=== PATIENT | female | born 1945 | race Caucasian/White ===

== ENCOUNTER 2021-10-09 23:30 | Inpatient (IN) | payer MEDICARE ==
--- NOTE | 2021-10-09 23:31 | ED ---
Recheck HPI - General Stated Complaint: Small bowel obstruction Time Seen by Provider: 10/09/21 23:31 - Related Data Allergies Allergy/AdvReac Type Severity Reaction Status Date / Time No Known Allergies Allergy Verified 10/09/21 23:39 Review of Systems ROS Statement: Those systems with pertinent positive or pertinent negative responses have been documented in the HPI. ROS Other: All systems not noted in ROS Statement are negative. Course Vital Signs 10/09/21 23:33 Temperature 97.6 F Pulse Rate 89 Respiratory 18 Rate Blood Pressure 112/77 O2 Sat by Pulse 98 Oximetry Disposition Clinical Impression: Small bowel obstruction, Abdominal pain, Nausea & vomiting, Hemodialysis patient Disposition: ADMITTED IP TO THIS HOSP Condition: Fair Is patient prescribed a controlled substance at d/c from ED?: No Referrals: None,Stated [Primary Care Provider] - 1-2 days
[2021-10-09] MEDS ORDERED: DEXTROSE 5%-0.45% NACL 1,000 ML IV SCH (23:45)
[2021-10-09] MEDS ORDERED: NALOXONE 0.4 MG/ML 1 ML VIAL IV PRN (23:50)
[2021-10-09] MEDS ORDERED: MORPHINE SULFATE 4 MG/ML SYRINGE IV PRN (23:50)
[2021-10-09] MEDS ORDERED: ONDANSETRON 4 MG/2 ML VIAL IVP PRN (23:50)
--- NOTE | 2021-10-10 06:49 | P.HPIM ---
History of Present Illness H&P Date: 10/10/21 The patient is a 76-year-old female with a PMH of CAD status post CABG, ESRD on peritoneal dialysis, gout, hypertension, diverticulosis, and anxiety who presented to [facility] with complaints of diffuse abdominal discomfort ongoing for the past 3 weeks. The patient reports that her abdominal discomfort has been occurring intermittently over the past few weeks. She is a somewhat poor historian but states that she has not been experiencing nausea, vomiting, or diarrhea at home. ED documentation from [facility] however states that the patient did endorse severe nausea with eating as well as multiple episodes of dry heaving at home. The patient was seen at [facility] [place] yesterday and was prescribed Zofran and Prilosec and subsequently again the following day when she was started on Ventolin Carafate which only provided temporary relief. The patient denied any prior history of chest symptoms. She denied experiencing chest discomfort, shortness of breath, fever, chills, cough. Denies any changes of the peritoneal dialysis catheter site. She underwent an extensive evaluation at [facility] Reviewed Showing a Lactic Acid of 0.9, WBC Count 10.5, Hemoglobin 11.7, Glucose 94, BUN 85, Creatinine 10.8, Sodium 121 POTASSIUM 4.9, CHLORIDE 86, CO2 25, AST 11, ALT 8, ALKALINE PHOSPHATASE 101, TOTAL BILIRUBIN 0.3, LIPASE 156, TROPONIN I 0.02, COVID NEGA TIVE, UA negative for UTI, with a CT chest, abdomen, and pelvis without contrast showing small bowel obstruction suspected partial in the mid to distal jejunum with a peritoneal dialysis catheter with free fluid in the abdomen suspected secondary to the catheter. Colonic diverticulosis without diverticulitis was also noted. EKG reveals sinus rhythm with APCs at [address]/T-wave changes noted as reviewed by me. The patient reported at time of the interview that her pain had resolved and that she felt significantly better. Review of systems: Pertinent positives and negatives as discussed in HPI, a complete review of systems was performed and all other systems are negative. Physical examination: General: non toxic, no distress, appears at stated age, normal weight Derm: no unusual rashes/lesions, warm Head: atraumatic, normocephalic, symmetric Eyes: EOMI, no lid lag, anicteric sclera, pupils equal round reactive to light ENT: Nose and ears atraumatic Neck: No cervical lymphadenopathy, trachea midline, supple Mouth: no lip lesion, mucus membranes moist Cardiovascular: S1S2 reg, no murmur, positive dorsalis pedis pulse bilateral, no edema Lungs: CTA bilateral, no rhonchi, no rales, no accessory muscle use Abdominal: soft, nontender to palpation, no guarding, peritoneal dialysis catheter in place without surrounding skin abnormalities Ext: muscle strength 5 out of 5 in all 4 extremities grossly, no gross muscle atrophy, no contractures, Neuro: CN II-XI grossly intact, no gross focal neuro deficits Psych: Alert, oriented, appropriate affect Assessment/plan Abdominal pain, suspected secondary to partial small bowel obstruction -Nothing by mouth for now -Insert NG tube for intermittent suction -Antiemetics, pain control -Protonix IV -General surgery consulted ESRD on peritoneal hemodialysis -Nephrology consulted Severe hyponatremia -No baseline available for comparison -Monitor for now DVT prophylaxis -Heparin subcu The patient is admitted with an anticipated greater than 2 midnight stay for evaluation of partial SBO CODE STATUS: Full Code Discussed with: Patient Anticipated discharge date: 10/[address]: Home Past Medical History Past Medical History: Coronary Artery Disease (CAD), Hypertension Additional Past Medical History / Comment(s): AV 1st degree block, ESRD (does peritoneal dialysis at home), Dyslipidemia, Acute gout, Nausea, Vertigo, Diverticulitis of sigmoid, Renal dialysis, hyponatremia, UTI History of Any Multi-Drug Resistant Organisms: None Reported Additional Past Surgical History / Comment(s): "Bypass 25 years ago", Fistula in left upper arm. Past Anesthesia/Blood Transfusion Reactions: No Reported Reaction Past Psychological History: Anxiety Smoking Status: Former smoker Past Alcohol Use History: None Reported Past Drug Use History: None Reported - Past Family History Father Family Medical History: Hyperlipidemia Medications and Allergies Home Medications Medication Instructions Recorded Confirmed Type Dicyclomine [Bentyl] 20 mg PO Q12HR 10/10/21 10/10/21 History Omeprazole 40 mg PO DAILY 10/10/21 10/10/21 History Ondansetron [Zofran] 4 mg PO Q8HR PRN 10/10/21 10/10/21 History Sucralfate [Carafate] 1 gram PO AC-TID 10/10/21 10/10/21 History Allergies Allergy/AdvReac Type Severity Reaction Status Date / Time No Known Allergies Allergy Verified 10/09/21 23:39 Physical Exam Vitals: Vital Signs Temp Pulse Pulse Resp BP BP Pulse Ox 10/10/21 01:30 18 10/10/21 00:44 97.7 F 86 14 110/55 98 10/09/21 23:33 97.6 F 89 18 112/77 98 Intake and Output 10/09/21 10/09/21 10/10/21 14:59 22:59 06:59 Intake Total 160 Balance 160 Intake: Intake, IV Titration 160 Amount Dextrose 5%-0.45% NaCl 1, 160 000 ml @ 20 mls/hr IV . Q24H [facility] Rx#:[id number] Other: Voiding Method Toilet # Voids 0 # Bowel Movements 0 Weight 58.967 kg Results CBC & Chem 7: 10/10/21 06:20 10/10/21 06:20 Thrombosis Risk Factor Assmnt - Choose All That Apply Each Risk Factor Represents 3 Points: Age 75 years or older Thrombosis Risk Factor Assessment Total Risk Factor Score: 3 Thrombosis Risk Factor Assessment Level: Moderate Risk
[2021-10-10 06:50] LABS: Basophils # (A) 0.1 k/uL (0-0.2); Basophils % (A) 1 %; Eosinophils # (A) 0.1 k/uL (0-0.7); Eosinophils % (A) 1 %; HCT 35.9 % (34.0-46.0); HGB 11.4 gm/dL (11.4-16.0); Lymphocytes # (A) 1.1 k/uL (1.0-4.8); Lymphocytes % (A) 11 %; MCH 29.5 pg (25.0-35.0); MCHC 31.7 g/dL (31.0-37.0); MCV 93.3 fL (80.0-100.0); Mean Platelet Volume 7.4; Monocytes # (A) 0.9 k/uL (0-1.0); Monocytes % (A) 10 %; Neutrophils # (A) 7.3 k/uL (1.3-7.7); Neutrophils % (A) 76 %; Platelet Count 366 k/uL (150-450); RBC 3.85 m/uL (3.80-5.40); RDW 13.8 % (11.5-15.5); WBC 9.6 k/uL (3.8-10.6)
[2021-10-10 07:01] LABS: Albumin 2.7 g/dL (3.5-5.0); Calcium 6.7 mg/dL (8.4-10.2); Magnesium 1.2 mg/dL (1.6-2.3); Phosphorus 7.5 mg/dL (2.5-4.5); Potassium 5.4 mmol/L (3.5-5.1); Total Bilirubin 0.3 mg/dL (0.2-1.3); Total Protein 6.1 g/dL (6.3-8.2)
[2021-10-10] MEDS: PANTOPRAZOLE 40 MG/10 ML VIAL IV SCH (07:38)
[2021-10-10] MEDS: HEPARIN SODIUM,PORCINE/PF 5,000 UNIT/0.5 ML SYRINGE SQ SCH ×3 (07:38→23:18)
[2021-10-10] MEDS ORDERED: DIALYSIS (PERIT 2.5%) 2,000 ML 50 G/2,000 ML BAG INTRAPERIT SCH (13:30)
--- NOTE | 2021-10-10 13:33 | P.NPCON ---
History of Present Illness - Reason for Consult Consult date: 10/10/21 end stage renal disease - Chief Complaint Abdominal pain - History of Present Illness 76-year-old white lady coming to the hospital with abdominal pain. She is on peritoneal dialysis for the last 2 years. Prior to that she was on hemodialysis for the last 2 years. She is on icodextrin 2 L daily as her dialysate. As per her she was recently admitted 2 weeks ago to [facility], with abdominal pain and she was treated with intraperitoneal antibiotics. Denies nausea vomiting diarrhea. No chest pain shortness of breath. She admits, she was on cyclosporine before but stopped using it because it was not working well. And she doesn't want to use multiple fluids in the day. Her mat inspector is Dr. Carrillo. 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 Past Anesthesia/Blood Transfusion Reactions: No Reported Reaction Past Psychological History: Anxiety Smoking Status: Former smoker Past Alcohol Use History: None Reported Past Drug Use History: None Reported - Past Family History Father Family Medical History: Hyperlipidemia Medications and Allergies Home Medications Medication Instructions Recorded Confirmed Type Calcium Acetate [Phoslo] 2,001 mg PO TID 10/10/21 10/10/21 History Ergocalciferol (Vitamin D2) 1,250 mcg PO QMONTHLY 10/10/21 10/10/21 History [Drisdol (50,000 Iu)] LORazepam [Ativan] 0.5 mg PO BID 10/10/21 10/10/21 History Lovastatin [Altoprev] 60 mg PO HS 10/10/21 10/10/21 History Metoprolol Tartrate [Lopressor] 100 mg PO BID 10/10/21 10/10/21 History Omeprazole 40 mg PO DAILY 10/10/21 10/10/21 History Ondansetron [Zofran] 4 mg PO Q8HR PRN 10/10/21 10/10/21 History Sucralfate [Carafate] 1 gram PO AC-TID 10/10/21 10/10/21 History cloNIDine HCL [Catapres] 0.3 mg PO DAILY 10/10/21 10/10/21 History Allergies Allergy/AdvReac Type Severity Reaction Status Date / Time No Known Allergies Allergy Verified 10/10/21 12:18 Physical Exam Vitals: Vital Signs Temp Pulse Pulse Resp BP BP Pulse Ox 10/10/21 08:00 98.5 F 91 17 111/71 98 10/10/21 01:30 18 10/10/21 00:44 97.7 F 86 14 110/55 98 10/09/21 23:33 97.6 F 89 18 112/77 98 Intake and Output 10/09/21 10/10/21 10/10/21 22:59 06:59 14:59 Intake Total 160 Balance 160 Intake: Intake, IV Titration 160 Amount Dextrose 5%-0.45% NaCl 1, 160 000 ml @ 20 mls/hr IV . Q24H [facility] Rx#:[id number] Other: Voiding Method Toilet # Voids 0 # Bowel Movements 0 Weight 58.967 kg No Acute distress S1 S2 heard Lungs clear No Edema Results - Lab Results Most recent lab results Calcium 6.7 mg/dL (8.4-10.2) L 10/10/21 06:20 Phosphorus 7.5 mg/dL (2.5-4.5) H 10/10/21 06:20 Magnesium 1.2 mg/dL (1.6-2.3) L 10/10/21 06:20 10/10/21 06:20 10/10/21 06:20 Assessment and Plan Assessment: #1 abdominal pain, rule out constipation/peritonitis. #2 ESRD on peritoneal dialysis for the last 2 years. #3 hyponatremia suspect excessive free water intake #4 low normal blood pressures #5 anemia with chronic kidney disease Plan: #1 start CAPD, 2 L every 6 hours, 2.5% dialysate. #2 check peritonial fluid for cell count and cultures. #3 check abdominal x-ray for catheter position and rule out constipation #4 ESRD medications
--- NOTE | 2021-10-10 13:50 | P.GSCN ---
History of Present Illness Consult date: 10/10/21 Reason for Consult: Abdominal pain, nausea, question of small bowel obstruction, end-stage renal disease on peritoneal dialysis History of present illness: Patient is a 76-year-old lady transferred to [facility] a reported 3 week history of diffuse abdominal pains with waxing and waning nausea. Computed tomography scan an outlying facility reportedly showed evidence of partial obstruction of the mid to distal jejunum. A peritoneal dialysis catheter is in place. She reports no history of abdominal surgery in tells me that she is feeling a lot better today than yesterday. Specifically she is feeling quite hungry and thirsty. 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 She denies fever or chills, tells me she hasn't had similar problems in the past. No reported history of inflammatory bowel disease. She isn't maintained on Bentyl at home, not on any manner of oral anticoagulants according to the medical record. CBC on presentation was normal and all counts, no evidence of leukocytosis, no o bvious signs of iron deficiency anemia, platelet count was 366. Conference of metabolic panel however shows a significant hyponatremia with sodium 125, potassium bit elevated at 5.2, CO2 of 21, creatinine 10.89 and a erosive 91. 7.5, magnesium low at 1.2. Total bilirubin was 0.3. AST was 16, a LT 11, alkaline phosphatase 85, albumin 2.1. She's been afebrile overnight, essentially hemodynamically stable with perhaps a mild tachycardia at 91, blood pressure is a bit low, mean arterial pressures 85, she is saturating well at 98% on room air. Nasogastric tube placement was initially ordered with as the patient was doing well overnight that was deferred for now. She tells me her last bowel movement was yesterday, somewhat loose. No bowel movement today but she admits to flatus. 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 Past Anesthesia/Blood Transfusion Reactions: No Reported Reaction Past Psychological History: Anxiety Smoking Status: Former smoker Past Alcohol Use History: None Reported Past Drug Use History: None Reported - Past Family History Father Family Medical History: Hyperlipidemia Medications and Allergies Home Medications Medication Instructions Recorded Confirmed Type Calcium Acetate [Phoslo] 2,001 mg PO TID 10/10/21 10/10/21 History Ergocalciferol (Vitamin D2) 1,250 mcg PO QMONTHLY 10/10/21 10/10/21 History [Drisdol (50,000 Iu)] LORazepam [Ativan] 0.5 mg PO BID 10/10/21 10/10/21 History Lovastatin [Altoprev] 60 mg PO HS 10/10/21 10/10/21 History Metoprolol Tartrate [Lopressor] 100 mg PO BID 10/10/21 10/10/21 History Omeprazole 40 mg PO DAILY 10/10/21 10/10/21 History Ondansetron [Zofran] 4 mg PO Q8HR PRN 10/10/21 10/10/21 History Sucralfate [Carafate] 1 gram PO AC-TID 10/10/21 10/10/21 History cloNIDine HCL [Catapres] 0.3 mg PO DAILY 10/10/21 10/10/21 History Allergies Allergy/AdvReac Type Severity Reaction Status Date / Time No Known Allergies Allergy Verified 10/10/21 12:18 Surgical - Exam Osteopathic Statement: *. No significant issues noted on an osteopathic structural exam other than those noted in the History and Physical/Consult. Vital Signs Temp Pulse Resp BP Pulse Ox 97.6 F 89 18 112/77 98 10/09/21 23:33 10/09/21 23:33 10/09/21 23:33 10/09/21 23:33 10/09/21 23:33 - General no distress, cachectic - Eyes PERRL, normal ocular movement - ENT normal pinna, normal nares - Neck trachea midline - Respiratory normal respiratory effort, clear to auscultation - Cardiovascular Rhythm: regular - Abdomen Abdomen is soft, nontender to palpation, there is mild to moderate distention with tympany. No guarding or rebound. Peritoneal dialysis catheter is in place. No clinical signs of jaundice. Abdomen: soft - Integumentary no rash - Neurologic normal coordination, normal sensation - Psychiatric oriented to time, oriented to person, oriented to place, speech is normal, memory intact Results - Labs 10/10/21 06:20 10/10/21 06:20 Abnormal Lab Results - Last 24 Hours (Table) 10/10/21 Range/Units 06:20 Sodium 125 L (137-145) mmol/L Potassium 5.4 H (3.5-5.1) mmol/L Chloride 91 L (98-107) mmol/L Carbon Dioxide 21 L (22-30) mmol/L BUN 94 H (7-17) mg/dL Creatinine 10.89 H* (0.52-1.04) mg/dL Calcium 6.7 L (8.4-10.2) mg/dL Phosphorus 7.5 H (2.5-4.5) mg/dL Magnesium 1.2 L (1.6-2.3) mg/dL Total Protein 6.1 L (6.3-8.2) g/dL Albumin 2.7 L (3.5-5.0) g/dL Diabetes panel 10/10/21 Range/Units 06:20 Sodium 125 L (137-145) mmol/L Potassium 5.4 H (3.5-5.1) mmol/L Chloride 91 L (98-107) mmol/L Carbon Dioxide 21 L (22-30) mmol/L BUN 94 H (7-17) mg/dL Creatinine 10.89 H* (0.52-1.04) mg/dL Glucose 91 (74-99) mg/dL Calcium 6.7 L (8.4-10.2) mg/dL AST 16 (14-36) U/L ALT 11 (4-34) U/L Alkaline Phosphatase 85 (38-126) U/L Total Protein 6.1 L (6.3-8.2) g/dL Albumin 2.7 L (3.5-5.0) g/dL Calcium panel 10/10/21 Range/Units 06:20 Calcium 6.7 L (8.4-10.2) mg/dL Phosphorus 7.5 H (2.5-4.5) mg/dL Albumin 2.7 L (3.5-5.0) g/dL Pituitary panel 10/10/21 Range/Units 06:20 Sodium 125 L (137-145) mmol/L Potassium 5.4 H (3.5-5.1) mmol/L Chloride 91 L (98-107) mmol/L Carbon Dioxide 21 L (22-30) mmol/L BUN 94 H (7-17) mg/dL Creatinine 10.89 H* (0.52-1.04) mg/dL Glucose 91 (74-99) mg/dL Calcium 6.7 L (8.4-10.2) mg/dL Adrenal panel 10/10/21 Range/Units 06:20 Sodium 125 L (137-145) mmol/L Potassium 5.4 H (3.5-5.1) mmol/L Chloride 91 L (98-107) mmol/L Carbon Dioxide 21 L (22-30) mmol/L BUN 94 H (7-17) mg/dL Creatinine 10.89 H* (0.52-1.04) mg/dL Glucose 91 (74-99) mg/dL Calcium 6.7 L (8.4-10.2) mg/dL Total Bilirubin 0.3 (0.2-1.3) mg/dL AST 16 (14-36) U/L ALT 11 (4-34) U/L Alkaline Phosphatase 85 (38-126) U/L Total Protein 6.1 L (6.3-8.2) g/dL Albumin 2.7 L (3.5-5.0) g/dL Assessment and Plan Assessment: 76-year-old lady with question of partial small bowel obstruction versus ileus in the setting of hyponatremia, hyperkalemia and electrolyte abnormalities in the setting of end-stage renal disease with what would appear to be a few missed peritoneal dialysis treatments. No evidence of peritonitis on exam, no hard signs for sepsis. Plan: Options for treatment were discussed with the patient. She is unenthusiastic about nasogastric tube placement and she tells me that for now she is feeling fine and that is actually hungry and wants to eat. I advised her that I probably wouldn't start her on a diet just yet until we do a bit more homework to rule out persistence of obstruction. I think to start we could get some abdominal films with antecedent oral contrast administration. We'll follow up with off upright and flat plate abdomen x-ray tomorrow. If it shows passage of contrast into the colon she can be advanced to full liquids. If it shows persistence of obstruction and she didn't need nasogastric tube placement and an initial trial of nonoperative management. First order of business is can address her dialysis needs and electrolyte issues. Will follow. No plans for surgery at present, I expect her to do well with nonoperative management. Time with Patient: Greater than 30
[2021-10-10] MEDS ORDERED: IOPAMIDOL CONTRAST (ORAL USE) VIAL PO PRN (13:59)
[2021-10-10] MEDS: DIALYSIS (PERIT 2.5%) 2,000 ML 50 G/2,000 ML BAG INTRAPERIT SCH ×2 (14:29→20:42)
--- NOTE | 2021-10-10 15:27 | P.PN ---
Subjective Progress Note Date: 10/10/21 Hospital course: The patient is a very pleasant 76-year-old female with a past medical history of CAD status post CABG x4, ESRD on daily peritoneal dialysis with last reported dialysis session being Monday10/08/28, hypertension, hyperlipidemia, and diverticulosis. She presented to the emergency department at [facility] with a chief complaint of diffuse abdominal pain and discomfort. Patient reported that this pain initially began approximately 3 weeks ago and has progressively worsened and was now accompanied by nausea and vomiting. At [facility] patient underwent full evaluation at that facility and was reported to have a lactic acid of 0.9, WBC count of 10.5, hemoglobin 11.7, glucose 94, BUN 85, creatinine 10.8, sodium 121, potassium 4.9, chloride 86, bicarb 25, AST 11, ALT 8, alkaline phosphatase of 101, total bilirubin of 0.3, lipase 156, and troponin 0.02. Urinalysis was reportedly negative for UTI. EKG reported sinus rhythm with occasional PACs. However CT chest, abdomen, and pelvis without contrast revealed small bowel obstruction suspected partial in mid to distal jejunum, dialysis catheter in place with free fluid in the abdomen suspected to be secondary to dialysis catheter, and colonic diverticulosis without acute diverticulitis. Patient was then transferred to our facility for admission to the hospital and consultation to general surgery for concerns of small bowel obstruction and nephrology for continued dialysis. Physical examination: Patient seen and fully evaluated at bedside this morning. Patient reports persi stent nausea this morning but denies any further episodes of vomiting and reports slight improvement in previously reported abdominal pain. Patient is unsure but states that she believes she has been passing flatus, but denies any bowel movements at this time. Patient reports her last bowel movement was yesterday and was a very small soft/liquidy stool. She denies having any hematemesis, melena, or hematochezia. Awaiting surgery evaluation and further recommendations. Hyponatremia slowly improving, Morning labs reveal sodium 125. Hyperkalemia present with potassium of 5.4 secondary to ESRD with BUN 94, creatinine 10.89, and GFR of 3. Patient missed dialysis session and preparing to undergo peritoneal dialysis at this time. Calcium 6.7 with corrected calcium of 7.7. Order placed for 1 g calcium gluconate. Magnesium 1.2, order placed for magnesium sulfate 4 g. General: non toxic, no distress, appears at stated age Derm: warm, dry Head: atraumatic, normocephalic, symmetric Eyes: EOMI, no lid lag, anicteric sclera Mouth: no lip lesion, mucus membranes moist Cardiovascular: S1S2 reg, systolic murmur, positive posterior tibial pulses bilaterally, AV fistula left upper extremity with bruit and thrill present. Lungs: CTA bilateral, no rhonchi, no rales , no accessory muscle use Abdominal: soft, diffuse abdominal tenderness to palpation, no guarding, no appreciable organomegaly. Peritoneal dialysis catheter in place. Ext: no gross muscle atrophy, no edema, no contractures Neuro: CN II-XI grossly intact, no focal neuro deficits Psych: Alert, oriented, appropriate affect Assessment/plan Abdominal pain, suspected secondary to partial small bowel obstruction vs ileus -Nothing by mouth for now, advance diet as recommended by general surgery team -If pt continues to have nausea or any further episodes of vomiting we will need to Insert NG tube to Low intermittent suction for bowel decompression. -Antiemetics and pain control -Protonix IV -General surgery consulted -Gentle IV fluid hydration with 0.9% normal saline at 50 mL's per hour only while patient is nothing by mouth status, may discontinue once diet is advanced. ESRD on peritoneal hemodialysis Hyperkalemia secondary to above -Nephrology consulted -Patient reports missing yesterday's dialysis session and is currently due for dialysis. Patient has supplies and preparing to undergo peritoneal dialysis at this time. -Hyperkalemia should correct once patient is completed with dialysis. Severe hyponatremia -No baseline available for comparison, likely chronic -Nephrology following -Monitor for now Hypocalcemia -Calcium 6.7 with corrected calcium of 7.7. Patient to receive 1 g calcium gluconate and we will continue to monitor with repeat a.m. labs. Hypomagnesemia -Magnesium 1.2, replaced. -We will continue to monitor with repeat a.m. labs and correct abnormal electrolyte values as needed. History of CAD status post quadruple bypass Hypertension Hyperlipidemia -Patient to continue daily cardiac medication regimen with metoprolol, lovastatin, and clonidine. CODE STATUS: Full Code DVT Prophylaxis: Heparin Discussed with: Patient and RN Anticipated discharge date: Clinical course to determine Anticipated discharge place: Home A total of 38 minutes was spent on the care of this complex patient more than 50% of the time was spent in counseling and care coordination I reviewed the documentation as provided by the RODGER above, who is the original author of this note. I agree with the documented assessment and plan, with the following changes: none Objective - Vital Signs Vital signs: Vital Signs Temp 97.7 F 10/10/21 00:44 Pulse 86 10/10/21 00:44 Resp 18 10/10/21 01:30 BP 110/55 10/10/21 00:44 Pulse Ox 98 10/10/21 00:44 FiO2 Intake & Output 10/09/21 10/10/21 10/10/21 18:59 06:59 18:59 Intake Total 160 Balance 160 Weight 58.967 kg Intake: Intake, IV Titration 160 Amount Dextrose 5%-0.45% NaCl 1, 160 000 ml @ 20 mls/hr IV . Q24H [facility] Rx#:[id number] Other: Voiding Method Toilet # Voids 0 # Bowel Movements 0 - Labs CBC & Chem 7: 10/10/21 06:20 10/10/21 06:20 Labs: Abnormal Lab Results - Last 24 Hours (Table) 10/10/21 Range/Units 06:20 Sodium 125 L (137-145) mmol/L Potassium 5.4 H (3.5-5.1) mmol/L Chloride 91 L (98-107) mmol/L Carbon Dioxide 21 L (22-30) mmol/L BUN 94 H (7-17) mg/dL Creatinine 10.89 H* (0.52-1.04) mg/dL Calcium 6.7 L (8.4-10.2) mg/dL Phosphorus 7.5 H (2.5-4.5) mg/dL Magnesium 1.2 L (1.6-2.3) mg/dL Total Protein 6.1 L (6.3-8.2) g/dL Albumin 2.7 L (3.5-5.0) g/dL
[2021-10-10] MEDS ORDERED: SODIUM CHLORIDE 0.9% 1,000 ML IV SCH (15:30)
[2021-10-10] MEDS: MAGNESIUM SULFATE-D5W PMX 1 GM in DEXTROSE/WATER 1 100ML.BAG IVPB SCH ×4 (15:45→23:19)
[2021-10-10] MEDS ORDERED: CALCIUM GLUCONATE IN NACL 1 GM in SALINE 1 100ML.BAG IVPB ONE (16:00)
[2021-10-10] MEDS ORDERED: CALCIUM ACETATE 667 MG TAB PO SCH (16:00)
[2021-10-10] MEDS: SUCRALFATE 1 GM TAB PO SCH (16:51)
[2021-10-10] MEDS: SEVELAMER 800 MG TAB PO SCH (16:52)
--- NOTE | 2021-10-10 19:31 | XR ---
EXAMINATION TYPE: XR abdomen acute w cxr DATE OF EXAM: 10/10/2021 COMPARISON: NONE HISTORY: Pain TECHNIQUE: 3 views FINDINGS: There is some mild linear density left lung base. Heart size is normal. No heart failure. N o pleural effusion. Bowel gas pattern is fairly normal. No sign of intestinal obstruction or pneumope ritoneum. There is tubing over the abdomen. No evidence of abdominal mass. IMPRESSION: Nonacute abdomen. Mild subsegmental atelectasis at the left lung base. Normal heart.
[2021-10-10] MEDS: ATORVASTATIN 20 MG TAB PO SCH (20:23)
[2021-10-10] MEDS: LORazepam 0.5 MG TAB PO SCH (20:23)
[2021-10-10] MEDS: METOPROLOL TARTRATE 50 MG TAB PO SCH (20:44)
[2021-10-11] MEDS: DIALYSIS (PERIT 2.5%) 2,000 ML 50 G/2,000 ML BAG INTRAPERIT SCH ×4 (02:30→23:30)
[2021-10-11] MEDS ORDERED: cloNIDine HCL 0.1 MG TAB PO SCH (09:00)
--- NOTE | 2021-10-11 09:11 | P.PN ---
Subjective Progress Note Date: 10/11/21 Hospital course: The patient is a very pleasant 76-year-old female with a past medical history of CAD status post CABG x4, ESRD on daily peritoneal dialysis with last reported dialysis session being Monday10/08/28, hypertension, hyperlipidemia, and diverticulosis. She presented to the emergency department at [facility] with a chief complaint of diffuse abdominal pain and discomfort. Patient reported that this pain initially began approximately 3 weeks ago and has progressively worsened and was now accompanied by nausea and vomiting. At [facility] patient underwent full evaluation at that facility and was reported to have a lactic acid of 0.9, WBC count of 10.5, hemoglobin 11.7, glucose 94, BUN 85, creatinine 10.8, sodium 121, potassium 4.9, chloride 86, bicarb 25, AST 11, ALT 8, alkaline phosphatase of 101, total bilirubin of 0.3, lipase 156, and troponin 0.02. Urinalysis was reportedly negative for UTI. EKG reported sinus rhythm with occasional PACs. However CT chest, abdomen, and pelvis without contrast revealed small bowel obstruction suspected partial in mid to distal jejunum, dialysis catheter in place with free fluid in the abdomen suspected to be secondary to dialysis catheter, and colonic diverticulosis without acute diverticulitis. Patient was then transferred to our facility for admission to the hospital and consultation to general surgery for concerns of small bowel obstruction and nephrology for continued dialysis.. Peritoneal fluid culture pending. Physical examination: Receive notification from radiology abdominal x-ray revealing pneumoperitoneum. Went to bedside to assess patient, patient reports feeling much better this morning and reports abdominal pain has completely subsided. Patient reports she is passing flatus but has not yet had a bowel movement. Patient denies having any nausea or vomiting. Findings on x-ray likely secondary to peritoneal dialysis catheter, Dr. Huitron was notified by RN of critical x-ray findings and coming to bedside to evaluate patient. Morning labs reviewed, revealing p ersistent hyponatremia with sodium of 125, hypochloremia with chloride of 88, BUN of 78.3, creatinine 9.6, and GFR of 3.6. We are holding off on peritoneal dialysis until patient is assessed by general surgeon and pneumoperitoneum can be completely ruled out. Previously noted hypomagnesemia and hyperkalemia have resolved. General: non toxic, no distress, appears at stated age Derm: warm, dry Head: atraumatic, normocephalic, symmetric Eyes: EOMI, no lid lag, anicteric sclera Mouth: no lip lesion, mucus membranes moist Cardiovascular: S1S2 reg, systolic murmur, positive posterior tibial pulses bilaterally, AV fistula left upper extremity with bruit and thrill present. Lungs: CTA bilateral, no rhonchi, no rales , no accessory muscle use Abdominal: soft, nontender to palpation, no guarding, no appreciable organomegaly. Peritoneal dialysis catheter in place. Ext: no gross muscle atrophy, no edema, no contractures Neuro: CN II-XI grossly intact, no focal neuro deficits Psych: Alert, oriented, appropriate affect Assessment/plan Ileus Abdominal pain -Nothing by mouth for now, advance diet as recommended by general surgery team -Repeat morning x-ray revealing improvement of previously noted obstructive pattern, however also revealing critical findings of pneumoperitoneum. This arash e air likely secondary to peritoneal dialysis catheter however general surgeon called to bedside to assess and rule out pneumoperitoneum. -Antiemetics and pain control -Protonix IV -General surgery following, no plans for surgical intervention at this time. ESRD on peritoneal hemodialysis -Nephrology consulted -Patient to continue daily peritoneal dialysis, morning session is pending evaluation by general surgeon to rule out pneumoperitoneum. Hyperkalemia, resolved Severe hyponatremia -No baseline available for comparison, likely chronic -Nephrology following -Monitor for now Hypocalcemia, resolved -Calcium 7.2 with corrected calcium of 8.4. Hypomagnesemia, resolved History of CAD status post quadruple bypass Hypertension Hyperlipidemia -Patient to continue daily cardiac medication regimen with metoprolol, lovastatin, and clonidine. CODE STATUS: Full Code DVT Prophylaxis: Heparin Discussed with: Patient and RN Anticipated discharge date: Clinical course to determine Anticipated discharge place: Home A total of 35 minutes was spent on the care of this complex patient more than 50% of the time was spent in counseling and care coordination I reviewed the documentation as provided by the RODGER above, who is the original author of this note. I agree with the documented assessment and plan, with the following changes: none Objective - Vital Signs Vital signs: Vital Signs Temp 97.8 F 10/11/21 07:13 Pulse 75 10/11/21 07:13 Resp 16 10/11/21 07:13 BP 132/76 10/11/21 07:13 Pulse Ox 100 10/11/21 07:13 FiO2 Intake & Output 10/10/21 10/11/21 10/11/21 18:59 06:59 18:59 Intake Total 900 Balance 900 Intake: Intake, IV Titration 900 Amount Magnesium Sulfate-D5w Pmx 300 1 gm In Dextrose/Water 1 100ml.bag @ 100 mls/hr IVPB Q1H [facility] Rx#: [id number] Sodium Chloride 0.9% 1, 600 000 ml @ 50 mls/hr IV . Q20H [facility] Rx#:[id number] Other: Voiding Method Toilet # Voids 1 1 # Bowel Movements 0 - Labs CBC & Chem 7: 10/11/21 06:03 10/13/21 06:24
[2021-10-11 09:16] LABS: HCT 35.6 % (37.2-46.3); HGB 11.1 g/dL (12.0-15.0); MCH 28.4 pg (27.0-32.0); MCHC 31.2 g/dL (32.0-37.0); Mean Platelet Volume 9.9 fL (9.5-12.2); NRBC Per 100 WBC 0 /100 WBCS (0.0-0.0); Platelet Count 322 X 10*3/uL (140-440); RBC 3.91 X 10*6/uL (4.10-5.20); RDW 14.7 % (11.5-14.5); WBC 6.29 X 10*3/uL (4.50-10.00)
--- NOTE | 2021-10-11 09:42 | XR ---
Abdomen 2 view HISTORY: Small bowel obstruction 2 views the abdomen on [address] from outside institution dated 10/09/2021, multiple v iew abdomen 10/10/2021 Free air is again noted within the abdomen which may be on the basis of peritoneal dialysis, peritone al dialysis catheter is present. Contrast material hasn't coursed into the colon. There are overlying leads. Lung bases show atelectatic changes. There are dense vascular calcifications noted. Air-fluid levels are present without bowel distention. IMPRESSION: Pneumoperitoneum as described. There is some improvement in bowel distention. Contrast gautam s coursed into the colon suggesting improvement in obstruction or partial obstruction. A [place] level critical message alert has been initiated for Yevgeniy Arriaga MD via the [employer] on 10/11/2021 9:02 AM. This message alert has been sent to Yevgeniy Arriaga MD via th e preferences provided by the clinician for the receipt of Radiology Critical Findings. Message ID [id number].
[2021-10-11 10:12] LABS: Magnesium 2.7 mg/dL (1.5-2.4)
[2021-10-11 10:18] LABS: African American GFR (CKD) 4.1 (60.0-200.0); Albumin 2.5 g/dL (3.8-4.9); Albumin/Globulin Ratio 0.78 (1.60-3.17); Anion Gap 14.2 mmol/L (10.00-18.00); BUN/Creat Ratio 8.16 Ratio (12.00-20.00); Blood Urea Nitrogen 78.3 mg/dL (9.0-27.0); Calcium 7.2 mg/dL (8.7-10.3); Carbon Dioxide 22.8 mmol/L (20.0-27.5); Globulin 3.2 g/dL (1.6-3.3); Non-African American GFR(CKD) 3.6 (60.0-200.0); Potassium 4.7 mmol/L (3.5-5.5); Total Bilirubin 0.2 mg/dL (0.30-1.20); Total Protein 5.7 g/dL (6.2-8.2)
--- NOTE | 2021-10-11 10:37 | P.PN ---
Subjective Patient is seen in follow-up for end-stage renal disease. She is maintained on peritoneal dialysis. Denies abdominal pain. No vomiting or diarrhea. Vital signs are stable. General: Awake. No acute distress. HEENT: Head exam is unremarkable. LUNGS: Breath sounds decreased. HEART: Rate and Rhythm are regular. ABDOMEN: Soft, nontender. EXTREMITITES: No edema. Objective - Vital Signs Vital signs: Vital Signs Temp 97.8 F 10/11/21 07:13 Pulse 75 10/11/21 07:13 Resp 16 10/11/21 07:13 BP 132/76 10/11/21 07:13 Pulse Ox 100 10/11/21 07:13 FiO2 Intake & Output 10/10/21 10/11/21 10/11/21 18:59 06:59 18:59 Intake Total 900 Balance 900 Intake: Intake, IV Titration 900 Amount Magnesium Sulfate-D5w Pmx 300 1 gm In Dextrose/Water 1 100ml.bag @ 100 mls/hr IVPB Q1H [facility] Rx#: [id number] Sodium Chloride 0.9% 1, 600 000 ml @ 50 mls/hr IV . Q20H [facility] Rx#:[id number] Other: Voiding Method Toilet # Voids 1 1 # Bowel Movements 0 - Labs CBC & Chem 7: 10/11/21 06:03 10/11/21 06:03 Labs: Abnormal Lab Results - Last 24 Hours (Table) 10/11/21 10/11/21 Range/Units 06:03 06:03 RBC 3.91 L (4.10-5.20) X 10*6/uL Hgb 11.1 L (12.0-15.0) g/dL Hct 35.6 L (37.2-46.3) % MCHC 31.2 L (32.0-37.0) g/dL RDW 14.7 H (11.5-14.5) % Sodium 125 L (135-145) mmol/L Chloride 88 L (96-109) mmol/L BUN 78.3 H (9.0-27.0) mg/dL Creatinine 9.6 H* (0.6-1.5) mg/dL Est GFR (CKD-EPI)AfAm 4.1 L (60.0-200.0) Est GFR (CKD-EPI)NonAf 3.6 L (60.0-200.0) BUN/Creatinine Ratio 8.16 L (12.00-20.00) Ratio Glucose 116 H (70-110) mg/dL Calcium 7.2 L (8.7-10.3) mg/dL Magnesium 2.7 H (1.5-2.4) mg/dL Total Bilirubin 0.20 L (0.30-1.20) mg/dL Total Protein 5.7 L (6.2-8.2) g/dL Albumin 2.5 L (3.8-4.9) g/dL Albumin/Globulin Ratio 0.78 L (1.60-3.17) g/dL Assessment and Plan Plan: Assessment: 1. End-stage renal disease maintained on peritoneal dialysis. 2. Partial small bowel obstruction. Surgery following. 3. Hyponatremia secondary to chronic kidney disease. 4. Hypertension with chronic kidney disease. Stable. 5. Chronic kidney disease mineral bone disease maintained on Renvela. 6. Hypomagnesemia from poor intake. Replaced. Resolved. 7. Pneumoperitoneum noted on abdominal x-ray. This is likely due to the PD cat heter. Surgery notified. Plan: Resume PD exchanges once seen by surgery. Follow-up dialysate cell count and culture. 1200 mL fluid restriction. Hep-Lock IV fluids. Diet to be advanced by surgery. Patient is hungry and wants to eat.
[2021-10-11] MEDS: PANTOPRAZOLE 40 MG/10 ML VIAL IV SCH (12:02)
[2021-10-11] MEDS: HEPARIN SODIUM,PORCINE/PF 5,000 UNIT/0.5 ML SYRINGE SQ SCH ×2 (12:02→17:10)
[2021-10-11] MEDS: LORazepam 0.5 MG TAB PO SCH ×2 (12:02→21:11)
[2021-10-11] MEDS: METOPROLOL TARTRATE 50 MG TAB PO SCH ×2 (12:02→21:11)
[2021-10-11] MEDS: FOLIC ACID-VIT B COMPLEX-VIT C 1 CAP PO SCH (12:02)
[2021-10-11] MEDS: SUCRALFATE 1 GM TAB PO SCH ×3 (12:02→17:21)
[2021-10-11] MEDS: SEVELAMER 800 MG TAB PO SCH ×3 (12:02→17:21)
[2021-10-11] MEDS: GENTAMICIN 0.1% CREAM 15 GM TUBE TOPICAL SCH (12:03)
--- NOTE | 2021-10-11 12:06 | P.PN ---
Subjective Progress Note Date: 10/11/21 The patient is seen on rounds. She denies any nausea. Denies any abdominal pain. Passing flatus. She is hungry. Objective - Vital Signs Vital signs: Vital Signs Temp 97.8 F 10/11/21 07:13 Pulse 75 10/11/21 07:13 Resp 16 10/11/21 07:13 BP 132/76 10/11/21 07:13 Pulse Ox 100 10/11/21 07:13 FiO2 Intake & Output 10/10/21 10/11/21 10/11/21 18:59 06:59 18:59 Intake Total 900 Balance 900 Intake: Intake, IV Titration 900 Amount Magnesium Sulfate-D5w Pmx 300 1 gm In Dextrose/Water 1 100ml.bag @ 100 mls/hr IVPB Q1H [facility] Rx#: [id number] Sodium Chloride 0.9% 1, 600 000 ml @ 50 mls/hr IV . Q20H [facility] Rx#:[id number] Other: Voiding Method Toilet # Voids 1 1 # Bowel Movements 0 - Constitutional General appearance: Present: cooperative, no acute distress - Gastrointestinal General gastrointestinal: Present: distended (Only slight distention with tympany to percussion), normal bowel sounds, soft. Absent: rigid, tenderness (No peritoneal signs, no guarding or rebound) - Labs CBC & Chem 7: 10/11/21 06:03 10/11/21 06:03 Labs: Abnormal Lab Results - Last 24 Hours (Table) 10/11/21 10/11/21 Range/Units 06:03 06:03 RBC 3.91 L (4.10-5.20) X 10*6/uL Hgb 11.1 L (12.0-15.0) g/dL Hct 35.6 L (37.2-46.3) % MCHC 31.2 L (32.0-37.0) g/dL RDW 14.7 H (11.5-14.5) % Sodium 125 L (135-145) mmol/L Chloride 88 L (96-109) mmol/L BUN 78.3 H (9.0-27.0) mg/dL Creatinine 9.6 H* (0.6-1.5) mg/dL Est GFR (CKD-EPI)AfAm 4.1 L (60.0-200.0) Est GFR (CKD-EPI)NonAf 3.6 L (60.0-200.0) BUN/Creatinine Ratio 8.16 L (12.00-20.00) Ratio Glucose 116 H (70-110) mg/dL Calcium 7.2 L (8.7-10.3) mg/dL Magnesium 2.7 H (1.5-2.4) mg/dL Total Bilirubin 0.20 L (0.30-1.20) mg/dL Total Protein 5.7 L (6.2-8.2) g/dL Albumin 2.5 L (3.8-4.9) g/dL Albumin/Globulin Ratio 0.78 L (1.60-3.17) g/dL Assessment and Plan (1) Ileus Current Visit: Yes Status: Acute Code(s): K56.7 - ILEUS, UNSPECIFIED SNOMED Code(s): 222604222 (2) Chronic renal failure Current Visit: Yes Status: Acute Code(s): N18.9 - CHRONIC KIDNEY DISEASE, UNSPECIFIED SNOMED Code(s): 73725943 (3) Peritoneal dialysis catheter in place Current Visit: Yes Status: Acute Code(s): Z99.2 - DEPENDENCE ON RENAL DIALYSIS SNOMED Code(s): 659932000 (4) Hyponatremia Current Visit: Yes Status: Acute Code(s): E87.1 - HYPO-OSMOLALITY AND HYPONATREMIA SNOMED Code(s): 34835225 Plan: Patient has a ileus likely from electrolyte imbalance. Her abdominal series does show the ileus with no obstruction. There is air and stool in the rectum. A small amount of free air was seen, likely due to continuous peritoneal dialysis. Clinically she has a nonsurgical abdomen. We'll start her on clear liquid diet and advance her as tolerated.
[2021-10-11] MEDS: ATORVASTATIN 20 MG TAB PO SCH (21:09)
[2021-10-12] MEDS: HEPARIN SODIUM,PORCINE/PF 5,000 UNIT/0.5 ML SYRINGE SQ SCH ×4 (00:14→23:08)
[2021-10-12] MEDS: DIALYSIS (PERIT 2.5%) 2,000 ML 50 G/2,000 ML BAG INTRAPERIT SCH (05:25)
[2021-10-12 06:51] LABS: African American GFR (CKD) 5 (>60 ml/min/1.73 sqM); Anion Gap 7 mmol/L; Blood Urea Nitrogen 71 mg/dL (7-17); Calcium 6.8 mg/dL (8.4-10.2); Carbon Dioxide 24 mmol/L (22-30); Chloride 93 mmol/L (98-107); Glucose 98 mg/dL (74-99); Magnesium 2.1 mg/dL (1.6-2.3); Non-African American GFR(CKD) 4 (>60 ml/min/1.73 sqM); Potassium 4.7 mmol/L (3.5-5.1); Sodium 124 mmol/L (137-145)
[2021-10-12] MEDS: PANTOPRAZOLE 40 MG/10 ML VIAL IV SCH (08:48)
[2021-10-12] MEDS: METOPROLOL TARTRATE 50 MG TAB PO SCH ×2 (08:48→21:53)
[2021-10-12] MEDS: FOLIC ACID-VIT B COMPLEX-VIT C 1 CAP PO SCH (08:48)
[2021-10-12] MEDS: LORazepam 0.5 MG TAB PO SCH ×2 (08:48→21:52)
[2021-10-12] MEDS: SUCRALFATE 1 GM TAB PO SCH ×3 (08:48→16:26)
[2021-10-12] MEDS: SEVELAMER 800 MG TAB PO SCH ×3 (08:49→16:28)
[2021-10-12] MEDS: GENTAMICIN 0.1% CREAM 15 GM TUBE TOPICAL SCH (08:49)
--- NOTE | 2021-10-12 09:10 | P.PN ---
Subjective Progress Note Date: 10/12/21 Patient is seen on rounds. Denies any abdominal pain. Passing some gas. Tolerating clear liquids but would like more to eat. Objective - Vital Signs Vital signs: Vital Signs Temp 97.5 F L 10/12/21 07:29 Pulse 76 10/12/21 07:29 Resp 16 10/12/21 07:29 BP 127/70 10/12/21 07:29 Pulse Ox 100 10/12/21 07:29 FiO2 Intake & Output 10/11/21 10/12/21 10/12/21 18:59 06:59 18:59 Intake Total 1080 Balance 1080 Intake: Oral 1080 Other: Voiding Method Toilet - Constitutional General appearance: Present: cooperative, no acute distress - Gastrointestinal General gastrointestinal: Present: normal bowel sounds, soft. Absent: tenderness - Labs CBC & Chem 7: 10/11/21 06:03 10/12/21 06:13 Labs: Abnormal Lab Results - Last 24 Hours (Table) 10/11/21 10/11/21 10/12/21 Range/Units 06:03 06:03 06:13 RBC 3.91 L (4.10-5.20) X 10*6/uL Hgb 11.1 L (12.0-15.0) g/dL Hct 35.6 L (37.2-46.3) % MCHC 31.2 L (32.0-37.0) g/dL RDW 14.7 H (11.5-14.5) % Sodium 125 L 124 L (135-145) mmol/L Chloride 88 L 93 L (96-109) mmol/L BUN 78.3 H 71 H (9.0-27.0) mg/dL Creatinine 9.6 H* 8.21 H* (0.6-1.5) mg/dL Est GFR (CKD-EPI)AfAm 4.1 L (60.0-200.0) Est GFR (CKD-EPI)NonAf 3.6 L (60.0-200.0) BUN/Creatinine Ratio 8.16 L (12.00-20.00) Ratio Glucose 116 H (70-110) mg/dL Calcium 7.2 L 6.8 L (8.7-10.3) mg/dL Magnesium 2.7 H (1.5-2.4) mg/dL Total Bilirubin 0.20 L (0.30-1.20) mg/dL Total Protein 5.7 L (6.2-8.2) g/dL Albumin 2.5 L (3.8-4.9) g/dL Albumin/Globulin Ratio 0.78 L (1.60-3.17) g/dL Microbiology - Last 24 Hours (Table) 10/10/21 20:50 Gram Stain - Preliminary Peritoneal Fluid Body Fluid Culture - Preliminary Assessment and Plan (1) Ileus Current Visit: Yes Status: Acute Code(s): K56.7 - ILEUS, UNSPECIFIED SNOMED Code(s): 615806245 (2) Chronic renal failure Current Visit: Yes Status: Acute Code(s): N18.9 - CHRONIC KIDNEY DISEASE, UNSPECIFIED SNOMED Code(s): 84207887 (3) Peritoneal dialysis catheter in place Current Visit: Yes Status: Acute Code(s): Z99.2 - DEPENDENCE ON RENAL DIALYSIS SNOMED Code(s): 339584651 (4) Hyponatremia Current Visit: Yes Status: Acute Code(s): E87.1 - HYPO-OSMOLALITY AND HYPONATREMIA SNOMED Code(s): 43291645 Plan: Ileus is resolving. We will advance her diet. If anything changes with her condition I will be happy to see her again. Otherwise at this point surgery will sign off.
--- NOTE | 2021-10-12 10:05 | P.PN ---
Subjective Patient is seen in follow-up for end-stage renal disease. She is maintained on peritoneal dialysis. Denies abdominal pain. No vomiting or diarrhea. Tolerating liquid diet. Vital signs are stable. General: Awake. No acute distress. HEENT: Head exam is unremarkable. LUNGS: Breath sounds decreased. HEART: Rate and Rhythm are regular. ABDOMEN: Soft, nontender. EXTREMITITES: No edema. Objective - Vital Signs Vital signs: Vital Signs Temp 97.5 F L 10/12/21 07:29 Pulse 76 10/12/21 07:29 Resp 16 10/12/21 07:29 BP 127/70 10/12/21 07:29 Pulse Ox 100 10/12/21 07:29 FiO2 Intake & Output 10/11/21 10/12/21 10/12/21 18:59 06:59 18:59 Intake Total 1080 Balance 1080 Intake: Oral 1080 Other: Voiding Method Toilet - Labs CBC & Chem 7: 10/11/21 06:03 10/12/21 06:13 Labs: Abnormal Lab Results - Last 24 Hours (Table) 10/11/21 10/12/21 Range/Units 06:03 06:13 Sodium 125 L 124 L (135-145) mmol/L Chloride 88 L 93 L (96-109) mmol/L BUN 78.3 H 71 H (9.0-27.0) mg/dL Creatinine 9.6 H* 8.21 H* (0.6-1.5) mg/dL Est GFR (CKD-EPI)AfAm 4.1 L (60.0-200.0) Est GFR (CKD-EPI)NonAf 3.6 L (60.0-200.0) BUN/Creatinine Ratio 8.16 L (12.00-20.00) Ratio Glucose 116 H (70-110) mg/dL Calcium 7.2 L 6.8 L (8.7-10.3) mg/dL Magnesium 2.7 H (1.5-2.4) mg/dL Total Bilirubin 0.20 L (0.30-1.20) mg/dL Total Protein 5.7 L (6.2-8.2) g/dL Albumin 2.5 L (3.8-4.9) g/dL Albumin/Globulin Ratio 0.78 L (1.60-3.17) g/dL Microbiology - Last 24 Hours (Table) 10/10/21 20:50 Gram Stain - Preliminary Peritoneal Fluid Body Fluid Culture - Preliminary Assessment and Plan Plan: Assessment: 1. End-stage renal disease maintained on peritoneal dialysis. 2. Partial small bowel obstruction. Surgery following. 3. Hyponatremia secondary to chronic kidney disease. Also on liquid diet. 4. Hypertension with chronic kidney disease. Stable. 5. Chronic kidney disease mineral bone disease maintained on Renvela. 6. Hypomagnesemia from poor intake. Replaced. Resolved. 7. Pneumoperitoneum noted on abdominal x-ray. This is likely due to the PD catheter. Discussed with surgery. Plan: Change PD exchanges to 1500 mL every 6 hours with 1.5% dextrose solution. Follow-up dialysate cell count and culture - culture negative so far. Dialysate clear. 1200 mL fluid restriction. Diet to be advanced by surgery. Add sodium chloride tab. Repeat labs in the morning. Check TSH
[2021-10-12] MEDS: DIALYSIS (PERIT 1.5%) 1,500 ML 22.5 G/1,500 ML BAG INTRAPERIT SCH ×2 (12:17→17:02)
[2021-10-12] MEDS: SODIUM CHLORIDE TAB 1 GM TAB PO SCH (16:26)
--- NOTE | 2021-10-12 17:15 | P.PN ---
Subjective Progress Note Date: 10/12/21 Hospital course: The patient is a very pleasant 76-year-old female with a past medical history of CAD status post CABG x4, ESRD on daily peritoneal dialysis with last reported dialysis session being Monday10/08/28, hypertension, hyperlipidemia, and diverticulosis. She presented to the emergency department at [facility] with a chief complaint of diffuse abdominal pain and discomfort. Patient reported that this pain initially began approximately 3 weeks ago and has progressively worsened and was now accompanied by nausea and vomiting. At [facility] patient underwent full evaluation at that facility and was reported to have a lactic acid of 0.9, WBC count of 10.5, hemoglobin 11.7, glucose 94, BUN 85, creatinine 10.8, sodium 121, potassium 4.9, chloride 86, bicarb 25, AST 11, ALT 8, alkaline phosphatase of 101, total bilirubin of 0.3, lipase 156, and troponin 0.02. Urinalysis was reportedly negative for UTI. EKG reported sinus rhythm with occasional PACs. However CT chest, abdomen, and pelvis without contrast revealed small bowel obstruction suspected partial in mid to distal jejunum, dialysis catheter in place with free fluid in the abdomen suspected to be secondary to dialysis catheter, and colonic diverticulosis without acute diverticulitis. Patient was then transferred to our facility for admission to the hospital and consultation to general surgery for concerns of small bowel obstruction and nephrology for continued dialysis.. Peritoneal fluid culture pending. Physical examination: Patient seen and fully evaluated at bedside this morning. Patient's morning sodium 124. She has been started on sodium bicarb tablets and placed on fluid restriction by nephrology. Nephrology also changed at patient's dialysate solution. Abdominal pain completely resolved, patient tolerating oral intake without any episodes of nausea or vomiting and reports normal bowel function with last bowel movement being this morning. Patient reports she was hoping to go home today. It was explained to patient that secondary to low sodium levels. Being started on sodium bicarb tablets it would be best to monitor overnight and get a repeat sodium level in the morning. Patient agreeable at this time. General: non toxic, no distress, appears at stated age Derm: warm, dry Head: atraumatic, normocephalic, symmetric Eyes: EOMI, no lid lag, anicteric sclera Mouth: no lip lesion, mucus membranes moist Cardiovascular: S1S2 reg, systolic murmur, positive posterior tibial pulses bilaterally, AV fistula left upper extremity with bruit and thrill present. Lungs: CTA bilateral, no rhonchi, no rales , no accessory muscle use Abdominal: soft, nontender to palpation, no guarding, no appreciable organomegaly. Peritoneal dialysis catheter in place. Ext: no gross muscle atrophy, no edema, no contractures Neuro: CN II-XI grossly intact, no focal neuro deficits Psych: Alert, oriented, appropriate affect Assessment and plan of care: Severe hyponatremia -No baseline available for comparison, likely chronic due to ESRD -Nephrology following and changed patient's dialysate solution, placed patient on fluid restrictions and added sodium chloride tablets. -TSH -Continued close monitoring with repeat a.m. labs Ileus, resolved Abdominal pain, resolved -Abdominal pain completely resolved, patient tolerating oral intake without any episodes of nausea or vomiting and reports normal bowel function with last bowel movement being this morning. -X-ray completed 10/11/21 revealing pneumoperitoneum, patient asymptomatic and evaluated by general surgery confirming intra-abdominal cavity is secondary to peritoneal dialysis catheter. -Antiemetics and pain control -Protonix IV -General surgery following, no plans for surgical intervention at this time. ESRD on peritoneal hemodialysis -Nephrology managing -Patient to continue peritoneal dialysis Hyperkalemia, resolved Hypocalcemia, resolved -Calcium 7.2 with corrected calcium of 8.4. Hypomagnesemia, resolved History of CAD status post quadruple bypass Hypertension Hyperlipidemia -Patient to continue daily cardiac medication regimen with metoprolol, lovastatin, and clonidine. CODE STATUS: Full Code DVT Prophylaxis: Heparin Discussed with: Patient and RN Anticipated discharge date: Possibly tomorrow Anticipated discharge place: Home A total of 34 minutes was spent on the care of this complex patient more than 50% of the time was spent in counseling and care coordination. I reviewed the documentation as provided by the RODGER above, who is the original author of this note. I agree with the documented assessment and plan, with the following changes: none Objective - Vital Signs Vital signs: Vital Signs Temp 98.1 F 10/12/21 05:26 Pulse 71 10/12/21 05:26 Resp 18 10/12/21 01:57 BP 107/68 10/12/21 05:26 Pulse Ox 96 10/12/21 05:26 FiO2 Intake & Output 10/11/21 10/12/21 10/12/21 18:59 06:59 18:59 Intake Total 1080 Balance 1080 Intake: Oral 1080 Other: Voiding Method Toilet - Labs CBC & Chem 7: 10/11/21 06:03 10/13/21 06:24 Labs: Abnormal Lab Results - Last 24 Hours (Table) 10/11/21 10/11/21 10/12/21 Range/Units 06:03 06:03 06:13 RBC 3.91 L (4.10-5.20) X 10*6/uL Hgb 11.1 L (12.0-15.0) g/dL Hct 35.6 L (37.2-46.3) % MCHC 31.2 L (32.0-37.0) g/dL RDW 14.7 H (11.5-14.5) % Sodium 125 L 124 L (135-145) mmol/L Chloride 88 L 93 L (96-109) mmol/L BUN 78.3 H 71 H (9.0-27.0) mg/dL Creatinine 9.6 H* 8.21 H* (0.6-1.5) mg/dL Est GFR (CKD-EPI)AfAm 4.1 L (60.0-200.0) Est GFR (CKD-EPI)NonAf 3.6 L (60.0-200.0) BUN/Creatinine Ratio 8.16 L (12.00-20.00) Ratio Glucose 116 H (70-110) mg/dL Calcium 7.2 L 6.8 L (8.7-10.3) mg/dL Magnesium 2.7 H (1.5-2.4) mg/dL Total Bilirubin 0.20 L (0.30-1.20) mg/dL Total Protein 5.7 L (6.2-8.2) g/dL Albumin 2.5 L (3.8-4.9) g/dL Albumin/Globulin Ratio 0.78 L (1.60-3.17) g/dL Microbiology - Last 24 Hours (Table) 10/10/21 20:50 Gram Stain - Preliminary Peritoneal Fluid Body Fluid Culture - Preliminary
[2021-10-12] MEDS: ATORVASTATIN 20 MG TAB PO SCH (21:52)
[2021-10-13] MEDS: DIALYSIS (PERIT 1.5%) 1,500 ML 22.5 G/1,500 ML BAG INTRAPERIT SCH ×4 (00:04→12:51)
[2021-10-13 02:04] VITALS: RESP 16
--- NOTE | 2021-10-13 09:11 | P.PN ---
Subjective Patient is seen in follow-up for end-stage renal disease. She is maintained on peritoneal dialysis. Denies abdominal pain. Dialysate has been clear. No vomiting or diarrhea. Tolerating oral intake. Hemodynamically stable. Vital signs are stable. General: Awake. No acute distress. HEENT: Head exam is unremarkable. LUNGS: Breath sounds decreased. HEART: Rate and Rhythm are regular. ABDOMEN: Soft, nontender. EXTREMITITES: No edema. Objective - Vital Signs Vital signs: Vital Signs Temp 97.8 F 10/13/21 07:26 Pulse 86 10/13/21 07:26 Resp 16 10/13/21 07:26 BP 145/87 10/13/21 07:26 Pulse Ox 99 10/13/21 07:26 FiO2 Intake & Output 10/12/21 10/13/21 10/13/21 18:59 06:59 18:59 Intake Total 1080 Balance 1080 Intake: Oral 1080 Other: Voiding Method Toilet Toilet # Voids 3 - Labs CBC & Chem 7: 10/11/21 06:03 10/12/21 06:13 Labs: Microbiology - Last 24 Hours (Table) 10/10/21 20:50 Gram Stain - Preliminary Peritoneal Fluid Body Fluid Culture - Preliminary Assessment and Plan Plan: Assessment: 1. End-stage renal disease maintained on peritoneal dialysis. 2. Partial small bowel obstruction. Surgery following. Tolerating oral intake. 3. Hyponatremia secondary to chronic kidney disease. He was also on liquid diet. 4. Hypertension with chronic kidney disease. Stable. 5. Chronic kidney disease mineral bone disease maintained on Renvela. 6. Hypomagnesemia from poor intake. Replaced. Resolved. 7. Pneumoperitoneum noted on abdominal x-ray. This is likely due to the PD catheter. Discussed with surgery. Plan: Maintain PD exchanges - 1500 mL every 6 hours with 1.5% dextrose solution. Patient has been refusing some of the PD exchanges. Icodextrin not available at this facility. Follow-up dialysate cell count and culture - the fluid was sent in the wrong tube so not done. Will reorder today. Culture negative so far. Dialysate clear. 1200 mL fluid restriction. Maintain sodium chloride tab. Follow-up TSH. Morning labs pending.
[2021-10-13 09:32] LABS: Magnesium 2.1 mg/dL (1.5-2.4)
[2021-10-13] MEDS: SEVELAMER 800 MG TAB PO SCH ×2 (10:15)
[2021-10-13] MEDS: FOLIC ACID-VIT B COMPLEX-VIT C 1 CAP PO SCH (10:15)
[2021-10-13] MEDS: METOPROLOL TARTRATE 50 MG TAB PO SCH (10:16)
[2021-10-13] MEDS: SODIUM CHLORIDE TAB 1 GM TAB PO SCH (10:16)
[2021-10-13] MEDS: HEPARIN SODIUM,PORCINE/PF 5,000 UNIT/0.5 ML SYRINGE SQ SCH (10:16)
[2021-10-13] MEDS: GENTAMICIN 0.1% CREAM 15 GM TUBE TOPICAL SCH (10:16)
[2021-10-13] MEDS: LORazepam 0.5 MG TAB PO SCH (10:16)
[2021-10-13] MEDS: SUCRALFATE 1 GM TAB PO SCH ×2 (10:16→12:53)
[2021-10-13] MEDS: PANTOPRAZOLE 40 MG/10 ML VIAL IV SCH (10:17)
[2021-10-13 10:19] LABS: African American GFR (CKD) 4.7 (60.0-200.0); BUN/Creat Ratio 7.51 Ratio (12.00-20.00); Blood Urea Nitrogen 65.3 mg/dL (9.0-27.0); Calcium 7.1 mg/dL (8.7-10.3); Carbon Dioxide 22.9 mmol/L (20.0-27.5); Chloride 90 mmol/L (96-109); Glucose 97 mg/dL (70-110); Potassium 3.8 mmol/L (3.5-5.5); Sodium 126 mmol/L (135-145)
--- NOTE | 2021-10-13 13:44 | P.DS ---
Providers Date of admission: 10/09/21 23:50 Expected date of discharge: 10/13/21 Attending physician: Yevgeniy Arriaga MD Consults: 10/09/21 23:50 Consult Physician Routine Consulting Provider: Kendall Vela Consult Reason/Comments: sbo Do you want consulting provider notified?: Yes Consult Physician Routine Consulting Provider: Ewa Singleton Consult Reason/Comments: CKDonHD Do you want consulting provider notified?: Yes Primary care physician: Stated None Hospital Course: Discharge Diagnosis: Severe hyponatremia, sodium 126 upon discharge. Nephrology following and started patient on sodium chloride tablets 1 g daily and instructed her on fluid restrictions of 1500 mL daily. Patient was given a prescription to follow up outpatient in 3 days for repeat BMP with results to be sent to PCP and nephrology for follow-up and management. Ileus, resolved Abdominal pain, resolved ESRD on peritoneal hemodialysis, patient instructed to continue daily peritoneal dialysis and follow up outpatient with nephrology. Hypocalcemia, resolved. Calcium 7.2 with corrected calcium of 8.4. Hypomagnesemia, resolved History of CAD status post quadruple bypass, Patient to continue daily cardiac medication regimen with metoprolol, lovastatin, and clonidine. Hypertension, monitor vital signs and continue daily medication regimen with metoprolol and clonidine. Hyperlipidemia, continue daily medication regimen with lovastatin. Hospital Course: The patient is a very pleasant 76-year-old female with a past medical history of CAD status post CABG x4, ESRD on daily peritoneal dialysis with last reported dialysis session being Monday10/08/28, hypertension, hyperlipidemia, and diverti culosis. She presented to the emergency department at [facility] with a chief complaint of diffuse abdominal pain and discomfort. Patient reported that this pain initially began approximately 3 weeks ago and has progressively worsened and was now accompanied by nausea and vomiting. At [facility] patient underwent full evaluation at that facility and was reported to have a lactic acid of 0.9, WBC count of 10.5, hemoglobin 11.7, glucose 94, BUN 85, creatinine 10.8, sodium 121, potassium 4.9, chloride 86, bicarb 25, AST 11, ALT 8, alkaline phosphatase of 101, total bilirubin of 0.3, lipase 156, and troponin 0.02. Urinalysis was reportedly negative for UTI. EKG reported sinus rhythm with occasional PACs. However CT chest, abdomen, and pelvis without contrast revealed small bowel obstruction suspected partial in mid to distal jejunum, dialysis catheter in place with free fluid in the abdomen suspected to be secondary to dialysis catheter, and colonic diverticulosis without acute diverticulitis. Patient was then transferred to our facility for admission to the hospital and consultation to general surgery for concerns of small bowel obstruction and nephrology for continued dialysis.. Peritoneal fluid culture pending. Patient's ileus/partial small bowel obstruction resolved without surgical intervention. Patient's diet was advanced and she tolerated well. Throughout hospitalization patient was found to have significant hyponatremia with sodium dropping to 124. Nephrology evaluated and started patient on sodium bicarb tablets. Hyponatremia is chronic secondary to ESRD. Sodium up to 126 and patient cleared by nephrology for discharge home and instructed to follow-up outpatient in their office. Patient is medically stable at this time. Vital signs unremarkable. Patient being discharged home on folate acid, Renvela, and sodium chloride tablets 1 g daily. Patient was given a prescription to follow up in 3 days for repeat BMP with results to be sent to PCP and nephrology for follow-up and management. Patient denied any questions, concerns, or complaints at this time. She is discharged home and is recommended to follow up outpatient with PCP in 1-2 days and cardiology in 1 week. Patient to continue daily peritoneal dialysis. Nephrology reports will follow up on dialysate cultures. Physical examination: General: non toxic, no distress, appears at stated age Derm: warm, dry Head: atraumatic, normocephalic, symmetric Eyes: EOMI, no lid lag, anicteric sclera Mouth: no lip lesion, mucus membranes moist Cardiovascular: S1S2 reg, systolic murmur, positive posterior tibial pulses bilaterally, AV fistula left upper extremity with bruit and thrill present. Lungs: CTA bilateral, no rhonchi, no rales , no accessory muscle use Abdominal: soft, nontender to palpation, no guarding, no appreciable organomegaly. Peritoneal dialysis catheter in place. Ext: no gross muscle atrophy, no edema, no contractures Neuro: CN II-XI grossly intact, no focal neuro deficits Psych: Alert, oriented, appropriate affect A total of 38 minutes of time were spent preparing this complex discharge summary. Pt was discharged on 10/13/21 at 1:36 PM. I reviewed the documentation as provided by the RODGER above, who is the original author of this note. I agree with the documented assessment and plan, with the following changes: none Patient Condition at Discharge: Stable Plan - Discharge Summary Discharge Rx Participant: Yes New Discharge Prescriptions: New Folic Acid-Vit B Complex-Vit C [Nephrocaps] 1 each PO DAILY 30 Days #30 cap Sevelamer [Renvela] 800 mg PO TID-W/MEALS 30 Days #90 tab Sodium Chloride Tab 1 gm PO DAILY 30 Days #30 tab Gentamicin 0.1% Cream 1 applic TOPICAL DAILY #1 each Continue Sucralfate [Carafate] 1 gram PO AC-TID cloNIDine HCL [Catapres] 0.3 mg PO DAILY LORazepam [Ativan] 0.5 mg PO BID Calcium Acetate [PhosLo] 2,001 mg PO TID Ergocalciferol (Vitamin D2) [Drisdol (50,000 Iu)] 1,250 mcg PO QMONTHLY Ondansetron [Zofran] 4 mg PO Q8HR PRN PRN Reason: Nausea Omeprazole 40 mg PO DAILY Metoprolol Tartrate [Lopressor] 100 mg PO BID Lovastatin [Altoprev] 60 mg PO HS Discharge Medication List Calcium Acetate [PhosLo] 2,001 mg PO TID 10/10/21 [History] Ergocalciferol (Vitamin D2) [Drisdol (50,000 Iu)] 1,250 mcg PO QMONTHLY 10/10/21 [History] LORazepam [Ativan] 0.5 mg PO BID 10/10/21 [History] Lovastatin [Altoprev] 60 mg PO HS 10/10/21 [History] Metoprolol Tartrate [Lopressor] 100 mg PO BID 10/10/21 [History] Omeprazole 40 mg PO DAILY 10/10/21 [History] Ondansetron [Zofran] 4 mg PO Q8HR PRN 10/10/21 [History] Sucralfate [Carafate] 1 gram PO AC-TID 10/10/21 [History] cloNIDine HCL [Catapres] 0.3 mg PO DAILY 10/10/21 [History] Folic Acid-Vit B Complex-Vit C [Nephrocaps] 1 each PO DAILY 30 Days #30 cap 10/13/21 [Rx] Gentamicin 0.1% Cream 1 applic TOPICAL DAILY #1 each 10/13/21 [Rx] Sevelamer [Renvela] 800 mg PO TID-W/MEALS 30 Days #90 tab 10/13/21 [Rx] Sodium Chloride Tab 1 gm PO DAILY 30 Days #30 tab 10/13/21 [Rx] Follow up Appointment(s)/Referral(s): Telly Blanchard MD [STAFF PHYSICIAN] - 1-2 Days Ubaldo Malhotra DO [STAFF PHYSICIAN] - 1 Week Ambulatory/Diagnostic Orders: Basic Metabolic Panel [LAB.AMB] Time Frame: 3 Days, Location: None Selected Patient Instructions/Handouts: Ileus (DC) Activity/Diet/Wound Care/Special Instructions: Activity: As tolerated. Take breaks as needed. Diet: Heart healthy and carb consistent diet. Avoid salts, or foods with hidden salts such as canned or boxed foods and frozen dinners. Extra salt makes your heart work harder and traps the fluid in your body for longer. Special Instructions: Take all of your medications as directed and remember to keep all of your doctor's appointments and follow-up as needed. Thank you for allowing us to participate in your care, it was truly a pleasure having you for our patient!!! Discharge Disposition: HOME SELF-CARE
[2021-10-13 15:05] VITALS: BP 137/89; PULSE 73; TEMP 98
[2021-10-13 22:59] LABS: Appearance,BF Clear
[2021-11-03] MEDS ORDERED: ERGOCALCIFEROL 1,250 MCG (50,000 IU) CAPSULE PO SCH (09:00)
== END 2021-10-13 15:31 | disposition home or self-care (01) | DRG 388 ==
LOC: EC 23:30 → 4SSUR 23:50
PROVIDERS: ADMIT Internal Medicine; ATTEND Internal Medicine
PROC: 0D9770Z Drainage of Stomach, Pylorus with Drainage Device, Via Natural or Artificial Opening (ICD-10-PCS; principal; 2021-10-10)
PROC: 3E1M39Z Irrigation of Peritoneal Cavity using Dialysate, Percutaneous Approach (ICD-10-PCS; 2021-10-10)
DX: K56.600 Partial intestinal obstruction, unspecified as to cause (principal); N18.6 End stage renal disease; T85.71XA Infection and inflammatory reaction due to peritoneal dialysis catheter, initial encounter; N39.0 Urinary tract infection, site not specified; K57.32 Diverticulitis of large intestine without perforation or abscess without bleeding; E87.1 Hypo-osmolality and hyponatremia; I12.0 Hypertensive chronic kidney disease with stage 5 chronic kidney disease or end stage renal disease; Z20.822 Contact with and (suspected) exposure to COVID-19; Y84.8 Other medical procedures as the cause of abnormal reaction of the patient, or of later complication, without mention of misadventure at the time of the procedure; K56.7 Ileus, unspecified; Z91.15 Patient's noncompliance with renal dialysis; Z99.2 Dependence on renal dialysis; K66.8 Other specified disorders of peritoneum; I25.10 Atherosclerotic heart disease of native coronary artery without angina pectoris; E87.5 Hyperkalemia; E83.51 Hypocalcemia; M89.8X9 Other specified disorders of bone, unspecified site; E83.42 Hypomagnesemia; D63.1 Anemia in chronic kidney disease; E83.9 Disorder of mineral metabolism, unspecified; E78.5 Hyperlipidemia, unspecified; M10.9 Gout, unspecified; F41.9 Anxiety disorder, unspecified; Z95.1 Presence of aortocoronary bypass graft; Z87.891 Personal history of nicotine dependence; Z79.899 Other long term (current) drug therapy
CPT/HCPCS: 74019; 74022; 80048; 80053; 83735; 84100; 84443; 85025; 85027; 87070; 87205; 89050; 99284